=== PATIENT | female | born 1950 | race Caucasian/White ===

== ENCOUNTER → 2018-02-08 | Outpatient (CLI) | payer OTHER, MEDICARE ==
[~2018-02-08] MED LIST: NORCO 5-325 TA1 EACH PO; PREMPRO 0.3 MG1 EACH PO; TRAMADOL 50 MG50 MG PO
== END ==
LOC: M.RAD 01-24 16:20
DX: Z12.31 Encounter for screening mammogram for malignant neoplasm of breast (principal)

== ENCOUNTER → 2019-03-05 | Outpatient (CLI) | payer MEDICARE, OTHER | LOC: M.RAD 03-03 16:30 | DX: Z12.31 Encounter for screening mammogram for malignant neoplasm of breast (principal) ==

== ENCOUNTER 2019-09-30 15:39 | Emergency (ER) | payer MEDICARE, OTHER ==
[~2019-09-30] VITALS: Ht 170.2 cm; Wt 62.6 kg
[2019-09-30] MEDS ORDERED: LASIX 20 MG TAB20 MG PO (15:57)
[2019-09-30] MEDS ORDERED: NORVASC 2.5 MG2.5 M1 PO (15:58)
[2019-09-30] MEDS ORDERED: TYLENOL WITH CO1 TA1 PO (16:47)
[2019-09-30 16:59] VITALS: BP 131/67
== END 2019-09-30 17:00 | disposition home or self-care (01) ==
LOC: M.ERS 15:39
DX: M79.631 Pain in right forearm (principal); I10 Essential (primary) hypertension; Z79.899 Other long term (current) drug therapy; W22.8XXA Striking against or struck by other objects, initial encounter; Y93.89 Activity, other specified; Y92.89 Other specified places as the place of occurrence of the external cause; Y99.8 Other external cause status

== ENCOUNTER → 2020-03-29 | Outpatient (CLI) | payer MEDICARE, OTHER ==
[~2020-03-29] MED LIST changes: +LASIX 20 MG TAB20 MG PO; +NORVASC 2.5 MG2.5 M1 PO; +TYLENOL WITH CO1 TA1 PO
== END ==
LOC: M.RAD 03-22 13:30
PROVIDERS: ATTEND Internal Medicine
DX: Z12.31 Encounter for screening mammogram for malignant neoplasm of breast (principal)

== ENCOUNTER 2020-07-08 16:31 | Emergency (ER) | payer MEDICARE, OTHER ==
[~2020-07-08] VITALS: Ht 172.7 cm; Wt 62.6 kg
[2020-07-08] MEDS ORDERED: HYDROCHLOROTHIA25 M1 PO (16:49)
[2020-07-08] MEDS ORDERED: APAP W/CODEINE1 TA2 PO (18:29)
[2020-07-08 18:59] VITALS: BP 151/83
== END 2020-07-08 19:00 | disposition home or self-care (01) ==
LOC: M.ERS 16:31
DX: M65.4 Radial styloid tenosynovitis [de Quervain] (principal); I10 Essential (primary) hypertension; Z90.49 Acquired absence of other specified parts of digestive tract; Z79.899 Other long term (current) drug therapy

== ENCOUNTER 2021-02-18 15:01 | Emergency (ER) | payer OTHER, MEDICARE ==
[~2021-02-18] VITALS: Ht 170.2 cm; Wt 61.2 kg
[~2021-02-18 15:01] MED LIST changes: +APAP W/CODEINE1 TA2 PO; +HYDROCHLOROTHIA25 M1 PO
[2021-02-18] MEDS ORDERED: HYDROCODON-ACE1 EAC7 PO (16:32)
[2021-02-18 16:45] VITALS: BP 162/57
--- NOTE | 2021-02-19 11:30 | EKG ---
[place] [address] ELECTROCARDIOGRAM REPORT Name: KACI TEMPLETON Room: [facility]#: [id number] Admission: 02/18/21 Attend Phys: Discharge: 02/18/21 Date of : 52 Date of Service: 02/18/21 1522 Report #: [id number] THIS REPORT FOR: //name// [facility] ED Test Date: 2021-02-18 Test Time: 15:22:11 Pat Name: KACI TEMPLETON Department: Room: Gender: F Counseling Specialist: ROBERTO : 1950 Requested By: Esteban Stokes Order Number: [id number] MD: Min Mitchell Measurements Intervals [place] Rate: 89 P: 68 RI: 164 QRS: 24 QRSD: 98 T: 79 QT: 412 QTc: 502 Interpretive Statements Sinus rhythm Ventricular bigeminy Probable left atrial enlargement Anteroseptal infarct, old Baseline wander in lead(s) V1 No previous ECG available for comparison Electronically Signed On 02-19-2021 11:30:09 CDT by Min Mitchell [email or web address] <ELECTRONICALLY SIGNED> By: Keaton Mitchell MD, [facility] 02/19/21 1130 1522 1522 Keaton Mitchell MD, [facility] /EPI
== END 2021-02-18 16:45 | disposition home or self-care (01) ==
LOC: M.ERS 15:01
DX: S62.660A Nondisplaced fracture of distal phalanx of right index finger, initial encounter for closed fracture (principal); M54.2 Cervicalgia; I10 Essential (primary) hypertension; Z79.891 Long term (current) use of opiate analgesic; Z79.899 Other long term (current) drug therapy; V49.3XXA Car occupant (driver) (passenger) injured in unspecified nontraffic accident, initial encounter; Y93.89 Activity, other specified; Y92.89 Other specified places as the place of occurrence of the external cause; Y99.8 Other external cause status

== ENCOUNTER → 2021-02-28 | Outpatient (CLI) | payer OTHER, MEDICARE ==
[~2021-02-28] MED LIST changes: +HYDROCODON-ACE1 EAC7 PO
== END ==
LOC: M.MRI 11:10
PROVIDERS: ATTEND Internal Medicine
DX: M50.323 Other cervical disc degeneration at C6-C7 level (principal); M48.02 Spinal stenosis, cervical region; S12.401 Unspecified nondisplaced fracture of fifth cervical vertebra; M46.02 Spinal enthesopathy, cervical region; M89.38 Hypertrophy of bone, other site; M25.78 Osteophyte, vertebrae; X58.XXXD Exposure to other specified factors, subsequent encounter

== ENCOUNTER → 2021-03-21 | Outpatient (CLI) | payer MEDICARE, OTHER | LOC: M.RAD 13:39 | PROVIDERS: ATTEND Internal Medicine | DX: Z12.31 Encounter for screening mammogram for malignant neoplasm of breast (principal) ==